=== PATIENT | female | born 1990 | race Caucasian/White ===

== ENCOUNTER 2024-11-28 03:32 | Inpatient (IN) | payer MEDICAID, OTHER ==
[~2024-11-28] VITALS: Ht 157.5 cm; Wt 91.2 kg
[~2024-11-28 03:32] MED LIST: NOCURR
[2024-11-28 04:11] LABS: PLATELET COUNT (AUTO) 281 K/uL (150-450); RED BLOOD CELL COUNT(AUTO) 4.18 MIL/uL (4.00-5.20); RED CELL DISTRIBUTION WIDTH 15.5 % (11.5-14.5); WHITE BLOOD COUNT (AUTO) 3.7 K/uL (4.5-11.0)
[2024-11-28 04:12] LABS: RBC MORPHOLOGY COMMENT ABNORMAL RBC MORPH
[2024-11-28 04:20] LABS: CALCIUM, TOTAL 8.4 mg/dL (8.8-10.5); CREATININE 0.38 mg/dL (0.60-1.30); GLOMERULAR FILTR. RATE CALC > 60 mL/min (>60); GLUCOSE,RANDOM 97 mg/dL (70-110); SODIUM SERUM 141 mmol/L (136-145); UREA NITROGEN, BLOOD 10 mg/dL (7-18)
[2024-11-28 04:26] LABS: ASPARTATE AMINOTRANSFERASE 24.0 U/L (15-37); TOTAL PROTEIN, SERUM 7.8 g/dL (6.4-8.2)
[2024-11-28 04:30] LABS: ALCOHOL, BLOOD (SERUM) 125.0 mg/dL (0-10)
[2024-11-28 05:07] LABS: APPEARANCE,URINE CLEAR (CLEAR); GLUCOSE, URINE (UA) NEGATIVE (NEGATIVE); LEUKOCYTE ESTERASE ,URINE NEGATIVE (NEGATIVE); NITRATE,URINE NEGATIVE (NEGATIVE); OCCULT BLOOD,URINE LARGE (NEGATIVE); PH,URINE DRUG SCREEN 5.5 (5.0-8.0); SPECIFIC GRAVITIY, URINE 1.008 (1.003-1.030)
[2024-11-28 05:12] LABS: ALCOHOL, URINE DRUG SCREEN POSITIVE (NEGATIVE); AMPHET/METH SCREEN,URINE NEGATIVE (NEGATIVE); BARBITURATE SCREEN, URINE NEGATIVE (NEGATIVE); CANNABINOID SCREEN,URINE POSITIVE (NEGATIVE); COCAINE SCREEN,URINE NEGATIVE (NEGATIVE); METHADONE SCREEN, URINE NEGATIVE (NEGATIVE)
[2024-11-28 05:15] LABS: SQUAMOUS EPITHELIAL CELL,UR Few /LPF (None Seen)
[2024-11-28] MEDS ORDERED: WATER IV ONE ×2 (06:30→07:30)
[2024-11-28] MEDS ORDERED: ACETYLCYSTEINE IV ONE ×2 (06:30→07:30)
[2024-11-28] MEDS ORDERED: DEXTROSE 5% IV ONE ×2 (06:30→07:30)
[2024-11-28] MEDS: ACETYLCYSTEINE 20% 200 MG/ML 30 ML ORAL SOLUTION PO ONE (07:08)
[2024-11-28] MEDS: WATER IV ONE (11:00)
[2024-11-28] MEDS: ACETYLCYSTEINE IV ONE (11:00)
[2024-11-28] MEDS: DEXTROSE 5% IV ONE (11:00)
[2024-11-28] MEDS ORDERED: IPRATROPIUM BROMIDE 0.5 MG/2.5 ML NEB SOLUTION NEB PRN (16:45)
[2024-11-28] MEDS ORDERED: BISACODYL 10 MG RECTAL RECTAL SUPPOSITORY PR PRN (16:45)
[2024-11-28] MEDS ORDERED: ALBUTEROL SULFATE 2.5 MG/0.5 ML NEB SOLUTION NEB PRN (16:45)
[2024-11-28] MEDS ORDERED: MAGNESIUM HYDROXIDE SUSPENSION 30 ML UDCUP PO PRN (16:45)
[2024-11-28] MEDS ORDERED: ZOLPIDEM TARTRATE 5 MG TABLET PO PRN (16:45)
[2024-11-28] MEDS ORDERED: ONDANSETRON HCL 4 MG/2 ML VIAL IVP PRN (16:45)
[2024-11-28 17:02] VITALS: BP 114/59; PULSE 76; RESP 18; TEMP 98.6; O2SAT 98
[2024-11-28 20:22] VITALS: BP 108/40; PULSE 60; RESP 18; TEMP 98.4; O2SAT 99
[2024-11-29 00:11] VITALS: BP 103/51; PULSE 56; RESP 16; TEMP 98.4; O2SAT 98
[2024-11-29 06:01] VITALS: BP 108/55; PULSE 58; RESP 16; TEMP 98.6; O2SAT 97
[2024-11-29 06:50] LABS: PLATELET COUNT (AUTO) 266 K/uL (150-450); RED BLOOD CELL COUNT(AUTO) 3.96 MIL/uL (4.00-5.20); RED CELL DISTRIBUTION WIDTH 15.7 % (11.5-14.5); WHITE BLOOD COUNT (AUTO) 4.3 K/uL (4.5-11.0)
[2024-11-29 08:00] VITALS: BP 96/48; RESP 18; TEMP 98.1; O2SAT 98
[2024-11-29 08:48] VITALS: BP 114/65; O2SAT 99
[2024-11-29] MEDS: MORPHINE SULFATE 4 MG/ML SYRINGE IVP PRN (08:54)
[2024-11-29] MEDS: PANTOPRAZOLE SODIUM 40 MG DR TABLET PO SCH (08:54)
[2024-11-29 09:02] LABS: RBC MORPHOLOGY COMMENT ABNORMAL RBC MORPH
[2024-11-29 12:47] LABS: CALCIUM, TOTAL 8.2 mg/dL (8.8-10.5); CREATININE 0.36 mg/dL (0.60-1.30); GLOMERULAR FILTR. RATE CALC > 60 mL/min (>60); GLUCOSE,RANDOM 90 mg/dL (70-110); SODIUM SERUM 141 mmol/L (136-145); UREA NITROGEN, BLOOD 9 mg/dL (7-18)
[2024-11-29 12:53] VITALS: BP 110/63; PULSE 71; RESP 18; TEMP 98.6; O2SAT 100
[2024-11-29 14:39] LABS: ASPARTATE AMINOTRANSFERASE 16 U/L (15-37); TOTAL PROTEIN, SERUM 7.1 g/dL (6.4-8.2)
[2024-11-29 16:00] VITALS: BP 92/48; PULSE 60; RESP 18; TEMP 98.6; O2SAT 100
== END 2024-11-29 17:50 | disposition left against medical advice (07) | DRG 817 ==
LOC: EMS 03:34 → EDH 10:28 → 5S 16:19
PROVIDERS: ADMIT Hospitalist; ATTEND Hospitalist
DX: T39.1X2A Poisoning by 4-Aminophenol derivatives, intentional self-harm, initial encounter (principal); R45.851 Suicidal ideations; F10.129 Alcohol abuse with intoxication, unspecified; F19.10 Other psychoactive substance abuse, uncomplicated; Y90.6 Blood alcohol level of 120-199 mg/100 ml; Y92.89 Other specified places as the place of occurrence of the external cause
CPT/HCPCS: 80048; 80076; 80307; 81001; 85025; 85610; 93005; 99291; G0480; G0481; J0132; J2270; J7060